=== PATIENT | female | born 1985 | race African-American/Black ===

== ENCOUNTER 2016-06-28 09:04 | Emergency (ER) | payer OTHER ==
[~2016-06-28] VITALS: Ht 152.4 cm; Wt 73.0 kg
[~2016-06-28 09:04] MED LIST: ENDOCET 5-3251 EACH PO; FOLIC ACID1 MG PO; IBUPROFEN800 MG PO; MOTRIN800 MG PO; MULTIPLE VITAM1 EAC4 PO; Motrin PO; NOHOMEMEDS; Natalcare Rx,Pramile PO; PERCOCET 5/31 TABLET PO; PRENATAL TABLE1 EAC3 PO; Percocet 5/325,Endoc PO; THERAGRAN1 TABLET PO
[2016-06-28] MEDS ORDERED: FLEXERIL10 MG PO (10:08)
[2016-06-28] MEDS ORDERED: NAPROXEN500 MG PO (10:08)
[2016-06-28 10:54] VITALS: BP 108/75
== END 2016-06-28 10:55 | disposition home or self-care (01) ==
LOC: EME → EXP 09:04 → EME 09:04 → EDBD 09:04 → EXP 10:55
DX: S00.83XA Contusion of other part of head, initial encounter (principal); S80.01XA Contusion of right knee, initial encounter; S80.02XA Contusion of left knee, initial encounter; V99.XXXA Unspecified transport accident, initial encounter
CPT/HCPCS: 70450; 72125; 99281; 99284

== ENCOUNTER 2016-07-26 17:16 | Emergency (ER) | payer OTHER ==
[~2016-07-26] VITALS: Ht 154.9 cm; Wt 74.4 kg
[~2016-07-26 17:16] MED LIST changes: +FLEXERIL10 MG PO; +NAPROXEN500 MG PO
[2016-07-26 21:44] VITALS: BP 116/80
== END 2016-07-26 21:45 | disposition home or self-care (01) ==
LOC: EME 17:16
DX: S46.912A Strain of unspecified muscle, fascia and tendon at shoulder and upper arm level, left arm, initial encounter (principal); V49.40XA Driver injured in collision with unspecified motor vehicles in traffic accident, initial encounter
CPT/HCPCS: 99281; 99283

== ENCOUNTER 2017-03-26 10:17 | Emergency (ER) | payer OTHER ==
[~2017-03-26] VITALS: Ht 153 cm; Wt 72.7 kg
[2017-03-26] MEDS ORDERED: MOTRIN600 MG PO (10:40)
[2017-03-26 11:17] VITALS: BP 115/83
== END 2017-03-26 11:17 | disposition home or self-care (01) ==
LOC: EME 10:17
DX: S39.012A Strain of muscle, fascia and tendon of lower back, initial encounter (principal); Z87.11 Personal history of peptic ulcer disease; Z87.891 Personal history of nicotine dependence; V49.9XXA Car occupant (driver) (passenger) injured in unspecified traffic accident, initial encounter
CPT/HCPCS: 99281; 99284

== ENCOUNTER 2017-04-09 10:38 | Emergency (ER) | payer OTHER ==
[~2017-04-09] VITALS: Ht 152.4 cm; Wt 72.7 kg
[~2017-04-09 10:38] MED LIST changes: +MOTRIN600 MG PO
[2017-04-09] MEDS ORDERED: TYLENOL WITH C1 EACH PO (12:39)
[2017-04-09 12:50] VITALS: BP 118/72
== END 2017-04-09 12:51 | disposition home or self-care (01) ==
LOC: EME 10:38
DX: S90.32XA Contusion of left foot, initial encounter (principal); V49.60XA Unspecified car occupant injured in collision with unspecified motor vehicles in traffic accident, initial encounter; Z91.040 Latex allergy status; Z88.2 Allergy status to sulfonamides; Z88.5 Allergy status to narcotic agent; Z88.8 Allergy status to other drugs, medicaments and biological substances
CPT/HCPCS: 73630; 99281; 99284